=== PATIENT | female | born 1970 | race Caucasian/White ===

== ENCOUNTER → 2019-07-02 | Outpatient (CLI) | payer OTHER ==
[~2019-07-02] MED LIST: BIRTH CONTROL; LEVO75TA68 PO
--- NOTE | 2019-07-03 08:28 | RADIOLOGY IMAGING REPORT ---
FACILITY: [facility] - [place] PATIENT NAME: TERESA PICHARDO : [id number] MR: [id number] V: [id number] EXAM DATE: ORDERING PHYSICIAN: ROCIO RSOE TECHNOLOGIST: Lary Ness PROCEDURE: BILATERAL DIGITAL SCREENING MAMMOGRAM WITH CAD ASSISTED INTERPRETATION & 3D TOMOSYNTHESIS REASON FOR STUDY: Screening FAMILY HISTORY OF BREAST CANCER: None BREAST PROCEDURES/TREATMENTS: None COMPARISON: Mammograms 03/24/17, 08/28/14 VIEWS OBTAINED: Bilateral 2D & 3D full field CC & MLO projections BREAST DENSITY: There are scattered areas of fibroglandular density throughout the breasts. MAMMOGRAM FINDINGS: Most of the parenchymal pattern has remained stable allowing for difference in mammographic technique & patient positioning. In the lateral portion Left breast in the middle depth on the Left CC view there is circumscribed ovoid area of increased density for which spot compression view is recommended DIAGNOSTIC CATEGORY 0--INCOMPLETE: NEED ADDITIONAL IMAGING EVALUATION. RECOMMENDATIONS: ADDITIONAL MAMMOGRAPHIC VIEWS REQUIRED: LEFT BREAST. ULTRASOUND: LEFT BREAST. IMPRESSION: BIRADS 0: Incomplete, need additional imaging evaluation. Additional views of the Left breast & possibly Left breast Ultrasound recommended depending on the additional imaging findings. Dictated by: Wanda Villalba M.D. on 07/02/2019 at 16:10 Transcribed by: NORMA on 07/03/2019 at 7:39 Approved by: Wanda Villalba M.D. on 07/03/2019 at 8:22 [facility]
== END ==
LOC: MAMO 00:47
PROVIDERS: ATTEND Nurse Practitioner Psychiatric/Mental Health
DX: Z12.31 Encounter for screening mammogram for malignant neoplasm of breast (principal); R92.8 Other abnormal and inconclusive findings on diagnostic imaging of breast
CPT/HCPCS: 77063; 77067